=== PATIENT | male | born 1975 | race African-American/Black ===

== ENCOUNTER 2018-02-01 11:33 | Emergency (ER) | payer BC ==
[~2018-02-01] VITALS: Ht 180.3 cm; Wt 150.0 kg
[~2018-02-01 11:33] MED LIST: MULTI VITAMINS1 TAB PO; OMNICEF 300MG300 MG PO
[2018-02-01 11:48] VITALS: BP 174/93; PULSE 91; TEMP 99
[2018-02-01] MEDS ORDERED: NIZORAL CR 30GM TOP (12:14)
== END 2018-02-01 12:27 | disposition home or self-care (01) ==
LOC: COL.ER 11:33
DX: B35.4 Tinea corporis (principal); E66.9 Obesity, unspecified; Z68.42 Body mass index [BMI] 45.0-49.9, adult

== ENCOUNTER 2019-12-14 20:27 | Emergency (ER) | payer SELFPAY ==
[~2019-12-14] VITALS: Ht 182.9 cm; Wt 177.9 kg
[~2019-12-14 20:27] MED LIST changes: +NIZORAL CR 30GM TOP
[2019-12-14 20:41] VITALS: TEMP 97
[2019-12-14 22:39] VITALS: BP 121/63; PULSE 71
== END 2019-12-14 22:39 | disposition home or self-care (01) ==
LOC: COL.ER 20:27
DX: R06.00 Dyspnea, unspecified (principal); Z77.098 Contact with and (suspected) exposure to other hazardous, chiefly nonmedicinal, chemicals

== ENCOUNTER → 2023-03-18 | Outpatient (CLI) | payer OTHER | LOC: COL.RAD 09:52 | DX: M72.2 Plantar fascial fibromatosis (principal); M19.071 Primary osteoarthritis, right ankle and foot; S93.491A Sprain of other ligament of right ankle, initial encounter; S83.241A Other tear of medial meniscus, current injury, right knee, initial encounter; X58.XXXA Exposure to other specified factors, initial encounter ==

== ENCOUNTER 2023-09-22 13:28 | Emergency (ER) | payer SELFPAY ==
[~2023-09-22] VITALS: Ht 182.9 cm; Wt 185.9 kg
[2023-09-22 13:39] VITALS: TEMP 98.1
[2023-09-22] MEDS ORDERED: oxyCODONE/Acetaminophen 5-325 MG TAB PO ONE (16:45)
[2023-09-22] MEDS ORDERED: NORCO 325 MG-51 TAB PO (18:41)
[2023-09-22 18:50] VITALS: BP 161/98; PULSE 82
== END 2023-09-22 18:55 | disposition home or self-care (01) ==
LOC: COL.ER 13:28
DX: M54.50 Low back pain, unspecified (principal); W19.XXXA Unspecified fall, initial encounter; Y92.89 Other specified places as the place of occurrence of the external cause; Y99.0 Civilian activity done for income or pay